=== PATIENT | female | born 1960 | race Caucasian/White ===

== ENCOUNTER 2019-02-13 11:34 | Emergency (ER) | payer MEDICAID, OTHER ==
--- NOTE | 2019-02-13 11:58 | ER Document Report ---
ED Medical Screen (RME) - General Chief Complaint: Urinary Problem Stated Complaint: BLOOD IN URINE Time Seen by Provider: 02/13/19 11:53 Mode of Arrival: Ambulatory Information source: Patient Notes: Patient presents complaining of hematuria 9 days ago that resolved and has been off and on since then. Patient states that she started having blood in her urine again last night with clots. Patient states she did start a new medication to treat her diabetes recently that can cause hematuria and she is concerned that she is having a side effect from her medication. Patient is also concerned as she is diabetic. Patient denies any fever although reports chills. Patient reports intermittent flank pain although none at this time. Patient does complain of lower pelvic pain as well. I have greeted and performed a rapid initial assessment of this patient. A comprehensive ED assessment and evaluation of the patient, analysis of test results and completion of the medical decision making process will be conducted by additional ED providers. TRAVEL OUTSIDE OF THE [place] IN LAST 30 DAYS: No - Related Data Allergies/Adverse Reactions: lisinopril Allergy (Verified 02/13/19 11:38) Past Medical History Renal/ Medical History: Denies: Hx Peritoneal Dialysis Physical Exam - Vital signs Vitals: Temp Pulse Resp BP Pulse Ox 98.2 F 80 16 145/89 H 98 02/13/19 11:46 02/13/19 11:46 02/13/19 11:46 02/13/19 11:46 02/13/19 11:46 - Abdominal Tenderness: Tender - lower pelvic Course - Vital Signs Vital signs: Temp Pulse Resp BP Pulse Ox 98.2 F 80 16 145/89 H 98 02/13/19 11:46 02/13/19 11:46 02/13/19 11:46 02/13/19 11:46 02/13/19 11:46
[2019-02-13 12:20] LABS: ABSOLUTE EOSINOPHILS # (AUTO) 0.2 10^3/uL (0.0-0.6); ABSOLUTE LYMPHOCYTES (AUTO) 1.7 10^3/uL (0.5-4.7); ABSOLUTE MONOCYTES (AUTO) 0.7 10^3/uL (0.1-1.4); ABSOLUTE NEUT (AUTO) 5.3 10^3/uL (1.7-8.2); BASOPHILS % (AUTO) 0.5 % (0-2); EOSINOPHILS % (AUTO) 2.1 % (0-6); HEMATOCRIT 33.4 % (36.0-47.0); HEMOGLOBIN 11.1 g/dL (12.0-15.5); LYMPHOCYTES % (AUTO) 21.9 % (13-45); MEAN CORPUSCULAR HEMOGLOBIN 27.6 pg (27.0-33.4); MEAN CORPUSCULAR HGB CONC 33.1 g/dL (32.0-36.0); MEAN CORPUSCULAR VOLUME 83 fl (80-97); MONOCYTES % (AUTO) 8.4 % (3-13); PLATELET COUNT 373 10^3/uL (150-450); RED BLOOD COUNT 4.01 10^6/uL (3.72-5.28); RED CELL DISTRIBUTION WIDTH 15.7 % (11.5-14.0); SEGMENTED NEUTROPHILS % (AUTO) 67.1 % (42-78); TOTAL CELLS COUNTED % (AUTO) 100 %; WHITE BLOOD COUNT 7.9 10^3/uL (4.0-10.5)
[2019-02-13 12:41] LABS: ALANINE AMINOTRANSFERASE 22 U/L (9-52); ALBUMIN 4.6 g/dL (3.5-5.0); ALKALINE PHOSPHATASE 82 U/L (38-126); ANION GAP 11 (5-19); ASPARTATE AMINO TRANSFERASE 26 U/L (14-36); BILIRUBIN,DIRECT 0.2 mg/dL (0.0-0.4); BILIRUBIN,TOTAL 0.3 mg/dL (0.2-1.3); BLOOD UREA NITROGEN 19 mg/dL (7-20); CALCIUM 10.4 mg/dL (8.4-10.2); CARBON DIOXIDE 26 mmol/L (22-30); CHLORIDE 104 mmol/L (98-107); GLUCOSE 111 mg/dL (75-110); POTASSIUM 4.4 mmol/L (3.6-5.0); SODIUM 140.6 mmol/L (137-145); TOTAL PROTEIN 7.9 g/dL (6.3-8.2)
[2019-02-13 12:42] LABS: APPEARANCE,URINE CLOUDY; BILIRUBIN,URINE NEGATIVE (NEGATIVE); COLOR,URINE YELLOW; GLUCOSE, URINE >=500 mg/dL (NEGATIVE); KETONES,URINE NEGATIVE (NEGATIVE); LEUKOCYTE ESTERASE,URINE MODERATE (NEGATIVE); NITRITE,URINE NEGATIVE (NEGATIVE); PROTEIN,URINE 30 mg/dL (NEGATIVE); URINE SPECIFIC GRAVITY 1.031; UROBILINOGEN,URINE NEGATIVE mg/dL (<2.0)
[2019-02-13] MEDS ORDERED: FLUCONAZOLE 100 MG TABLET PO ONE (13:15)
[2019-02-13] MEDS ORDERED: CEPHALEXIN 500 MG CAPSULE PO ONE (13:15)
[2019-02-13 13:27] VITALS: BP 142/75
--- NOTE | 2019-02-13 16:37 | ER Document Report ---
Entered by KERRI LEYVA SCRIBE 02/13/19 [id number] Acting as scribe for:BRIE LARIOS MD ED General - General Chief Complaint: Urinary Problem Stated Complaint: BLOOD IN URINE Time Seen by Provider: 02/13/19 11:53 Mode of Arrival: Ambulatory Information source: Patient Notes: Patient is a 58 year old female presenting to the emergency department complaining of hematuria, urinary frequency and burning. Patient states she has had these symptoms intermittently for 9 days. She states last night, she noticed hematuria with blood clots. She also complains of bilateral flank pain. She states she started a new diabetes medication a few weeks ago and is curious if this could have caused the hematuria due to reading it was a possible side effect. TRAVEL OUTSIDE OF THE [place] IN LAST 30 DAYS: No - Related Data Allergies/Adverse Reactions: lisinopril Allergy (Verified 02/13/19 11:38) Past Medical History - General Information source: Patient - Social History Smoking Status: Never Smoker Cigarette use (# per day): No Chew tobacco use (# tins/day): No Frequency of alcohol use: Occasional Family History: Reviewed & Not Pertinent Patient has suicidal ideation: No Patient has homicidal ideation: No Endocrine Medical History: Reports: Hx Diabetes Mellitus Type 2 Past Surgical History: Reports: Hx Appendectomy, Hx Thyroid Surgery - right, Other - hiatal hernia repair Review of Systems - Review of Systems Constitutional: No symptoms reported EENT: No symptoms reported Cardiovascular: No symptoms reported Respiratory: No symptoms reported Gastrointestinal: No symptoms reported Genitourinary: See HPI, Burning, Frequency, Flank pain, Hematuria Physical Exam - Vital signs Vitals: Temp Pulse Resp BP Pulse Ox 98.2 F 80 16 145/89 H 98 02/13/19 11:46 02/13/19 11:46 02/13/19 11:46 02/13/19 11:46 02/13/19 11:46 - Notes Notes: GENERAL: Alert, interacts well. No acute distress. HEAD: Normocephalic, atraumatic. EYES: Pupils equal, round, and reactive to light. Extraocular movements intact. ENT: Oral mucosa moist, tongue midline. NECK: Full range of motion. Supple. Trachea midline. LUNGS: Clear to auscultation bilaterally, no wheezes, rales, or rhonchi. No res piratory distress. HEART: Regular rate and rhythm. No murmurs, gallops, or rubs. ABDOMEN: Soft, non-tender. Non-distended. Bowel sounds present in all 4 quadrants. No guarding, rigidity, or rebound. EXTREMITIES: Moves all 4 extremities spontaneously. NEUROLOGICAL: Alert and oriented x3. Normal speech. PSYCH: Normal affect, normal mood. SKIN: Warm, dry, normal turgor. No rashes or lesions noted. BACK: Tender palpation to the upper lumbar and lower thoracic region. Tender to percussion diffusely across back. Course - Vital Signs Vital signs: Temp Pulse Resp BP Pulse Ox 98.0 F 75 16 142/75 H 100 02/13/19 13:26 02/13/19 13:26 02/13/19 13:26 02/13/19 13:26 02/13/19 13:26 - Laboratory Result Diagrams: 02/13/19 11:56 02/13/19 11:56 Laboratory results interpreted by me: 02/13/19 02/13/19 02/13/19 11:56 11:56 11:56 Hgb 11.1 L Hct 33.4 L RDW 15.7 H Creatinine 1.61 H Est GFR ( Amer) 40 L Est GFR (Non-Af Amer) 33 L Glucose 111 H Calcium 10.4 H Urine Protein 30 H Urine Glucose (UA) >=500 H Urine Blood LARGE H Ur Leukocyte Esterase MODERATE H Discharge - Discharge Clinical Impression: Hemorrhagic cystitis Condition: Stable Disposition: HOME, SELF-CARE Additional Instructions: Urinary Tract Infection Your evaluation indicates that you have a urinary tract infection. This is due to germs growing in the bladder. This is a common problem. This infection usually responds quickly to antibiotics. Your antibiotic should be taken exactly as prescribed. Drink plenty of fluids -- three to four quarts a day. Occasionally, a bladder anesthetic will be prescribed to help stop the feeling of urgency until the antibiotic has a chance to clear the infection. This may cause your urine to be dark orange. Certain urine infections require a culture. If the doctor obtained a culture, the results will be back in two days. You should call to see if a change in treatment is needed. A repeat urinalysis after you finish treatment is often recommended. The physician will let you know if further testing is required. Call the doctor if you develop fever, chills, flank pain, inability to urinate, or blood in the urine. Take the medications as prescribed. Drink plenty of fluids throughout the day in the evening for the next several days. Take [id number] Azo-Standard for the urinary burning and frequency symptoms as needed. Take Tylenol for your back pain. It would be best to avoid the nonsteroidal anti-inflammatory medication such as Motrin and Aleve, due to your impaired kidney function. Follow-up with your primary care provider and take copies of the lab work when you return home. RETURN TO THE EMERGENCY ROOM IF ANY NEW OR WORSENING SYMPTOMS. Prescriptions: Cephalexin Monohydrate [Keflex 500 mg Capsule] 500 mg PO TID #15 capsule Fluconazole [Diflucan] 100 mg PO ASDIR #2 tablet Scribe Attestation: 02/13/19 13:16 I personally performed the services described in the documentation, reviewed and edited the documentation which was dictated to the scribe in my presence, and it accurately records my words and actions. I personally performed the services described in the documentation, reviewed and edited the documentation which was dictated to the scribe in my presence, and it accurately records my words and actions.
== END 2019-02-13 13:27 | disposition home or self-care (01) ==
LOC: ER 11:34
DX: N30.81 Other cystitis with hematuria (principal); R35.0 Frequency of micturition; R30.9 Painful micturition, unspecified; E11.9 Type 2 diabetes mellitus without complications
CPT/HCPCS: 36415; 80053; 81001; 85025; 87086; 87088; 87186; 99283